=== PATIENT | female | born 1950 | race Caucasian/White ===

== ENCOUNTER → 2016-07-29 | Outpatient (CLI) | payer OTHER, MEDICARE | LOC: FIMAGING 11:28 | PROVIDERS: ATTEND Physician Assistant | DX: Z47.89 Encounter for other orthopedic aftercare (principal); M43.16 Spondylolisthesis, lumbar region; M47.896 Other spondylosis, lumbar region; Z98.1 Arthrodesis status ==

== ENCOUNTER → 2016-08-24 | Outpatient (CLI) | payer OTHER, MEDICARE | LOC: BHFA 09:15 | PROVIDERS: ATTEND Internal Medicine Cardiovascular Disease | DX: I27.2 Other secondary pulmonary hypertension (principal); G47.30 Sleep apnea, unspecified ==

== ENCOUNTER → 2017-02-22 | Outpatient (CLI) | payer OTHER, MEDICARE | LOC: FIMAGING 16:15 | PROVIDERS: ATTEND Internal Medicine | DX: Z12.31 Encounter for screening mammogram for malignant neoplasm of breast (principal) | CPT/HCPCS: G0202 ==

== ENCOUNTER 2017-05-14 08:47 | Day surgery (SDC) | payer OTHER, MEDICARE ==
--- NOTE | 2017-05-14 09:08 | PDGENHP ---
History & Physical Chief Complaint: CC: Reflux History of Present Illness: Hitory of reflux rule out Barretts Relevant Physical Exam: Lungs clear, Normal cardiac exam
[2017-05-14 09:28] VITALS: TEMP 97.9
[2017-05-14] MEDS ORDERED: LR 1,000 ML IV ONE (09:33)
--- NOTE | 2017-05-14 10:07 | PDANEPAE ---
ANE History of Present Illness EGD ANE Past Medical History - Cardiovascular History Hx Hypertension: No Hx Arrhythmias: No Hx Chest Pain: No Hx Coronary Artery / Peripheral Vascular Disease: No Hx CHF / Valvular Disease: No Hx Palpitations: No - Pulmonary History Hx Oxygen in Use at Home: Yes O2 in Use at Home (L/minute): 2L AT NOC Hx Sleep Apnea: Yes Sleep Apnea Screening Result - Last Documented: Positive Pulmonary History Comment: MAVIS POSITIVE USES O2 - Neurologic History Hx Cerebrovascular Accident: No Hx Seizures: No Hx Dementia: No Neurologic History Comment: HX OF LUMBAR SURGERY 2016 - Endocrine History Hx Diabetes: No - Renal History Hx Renal Disorders: No - Liver History Hx Hepatic Disorders: No - Neurological & Psychiatric Hx Hx Neurological and Psychiatric Disorders: No - Cancer History Hx Cancer: No - Congenital Disorder History Hx Congenital Disorders: No - GI History Hx Gastrointestinal Disorders: Yes Gastrointestinal History Comment: CHRONIC PANCREATITIS - Other Health History Other Health History: WEARS GLASSES - Chronic Pain History Chronic Pain: No - Surgical History Prior Surgeries: 06/22/15 L2-4, L4-5 TLIF WITH INSTRUMENTATION WITH SULEMA. CL,MENISCUS REPAIR,BREAST REDUCTION,ANKLE ORIF,LINDA THYROIDECTOMY ANE Review of Systems Review of systems is: negative Review of Systems: - Exercise capacity METS (RN): 4 METS ANE Patient History - Allergies Allergies/Adverse Reactions: gluten [Gluten] Allergy (Verified 05/13/17 16:12) GI UPSET hydromorphone HCl [From Dilaudid] Allergy (Verified 05/13/17 16:12) MIGRAINE MARKS morphine [Morphine] Allergy (Verified 05/13/17 16:12) NAUSEA NSAIDS (Non-Steroidal Anti-Inflamma Allergy (Verified 05/13/17 16:12) GASTRITIS - Home Medications Home medications: home medication list seen and reviewed Home Medications: ALPRAZolam [Xanax 1 MG (*)] 06/14/15 [Last Taken 05/13/17] Levothyroxine [Synthroid 125 mcg (*)] 06/14/15 [Last Taken 05/14/17] E2 05/13/17 [Last Taken 05/13/17] Epipen 0.3 MG 05/13/17 [Last Taken 05/02/12] Herbals/Supplements -Info Only 05/13/17 [Last Taken 05/13/17] Methocarbamol [Robaxin 750 mg (*)] 05/13/17 [Last Taken 05/13/17] Percocet 5-325 mg Tablet 05/13/17 [Last Taken 05/14/17] Progesterone, Micronized 05/13/17 [Last Taken 05/13/17] - NPO status NPO Since - Liquids (Date): 05/14/17 NPO Since - Liquids (Time): 06:00 NPO Since - Solids (Date): 05/13/17 NPO Since - Solids (Time): 19:30 - Anes Hx Anes Hx: no prior problems - Smoking Hx Smoking Status: Former smoker - Family Anes Hx Family Anes Hx: none Family Hx Anesthesia Complications: NONE ANE Labs/Vital Signs - Vital Signs Blood Pressure: 136/83 Heart Rate: 66 Respiratory Rate: 14 O2 Sat (%): 94 Height: 170.18 cm Weight: 87.6 kg ANE Physical Exam - Airway Neck exam: FROM Mallampati Score: Class 1 Mouth exam: normal dental/mouth exam - Pulmonary Pulmonary: no respiratory distress - Cardiovascular Cardiovascular: regular rate and rhythym - ASA Status ASA Status: III ANE Anesthesia Plan Total IV Anesthesia: Yes
--- NOTE | 2017-05-14 10:08 | POSTANESTH ---
Post Anesthetic Evaluation Cardiovascular Status: Normal, Stable, Similar to Pre-Op Cond Respiratory Status: Similar to Pre-op Cond. Level of Consciousness/Mental Status: Can Participate in Eval Pain Control: Adequate, Prn Tx Ordered Nausea/Vomiting Control: Adequate, Prn Tx Ordered Complications Possibly Related to Anesthesia: None Noted
[2017-05-14] MEDS ORDERED: PROPOFOL/EMULSION 500 MG/50 ML BOTTLE IV ONE (10:10)
--- NOTE | 2017-05-14 10:26 | GIREPORT ---
[facility] Surgical Services - Endoscopy Department Patient Name: Claudia Lara Procedure Date: 05/14/2017 9:57 AM Patient Type: Outpatient Attending MD/ ER Physician: Louis Blum MD Procedure: Upper GI endoscopy Indications: Heartburn, Esophageal reflux Providers: Louis Blum MD Medicines: Sedation Required Anesthesia Staff Assistance Complications: No immediate complications. Description of Procedure: After obtaining informed consent, the endoscope was passed under direct vision. Throughout the procedure, the patient's blood pressure, pulse, and oxygen saturations were monitored continuously. The Endoscope was intro duced through the mouth, and advanced to the second part of duodenum. The [facility] er GI endoscopy was accomplished without difficulty. The patient tolerated th e procedure well. Findings: The examined esophagus was normal. Biopsies were taken with a cold forc eps for histology. The entire examined stomach was normal. Biopsies were taken with a cold forceps for histology. The examined duodenum was normal. Biopsies for histology were taken wit h a cold forceps for evaluation of celiac disease. Estimated Blood Loss: Estimated blood loss: none. Post Op Diagnosis: - Normal esophagus. Biopsied. - Normal stomach. Biopsied. - Normal examined duodenum. Biopsied. Recommendation: - Follow an antireflux regimen. - Use Prevacid (lansoprazole) 30 mg PO daily. - Await pathology results. - Return to GI office in 2 months. - Thank you for allowing me to participate in the care of your patient. Attending Participation: I personally performed the entire procedure. Louis Blum MD Louis Blum MD 05/14/2017 10:26:15 AM This report has been signed electronicallyStchandra Blum MD Number of Addenda: 0 Note Initiated On: 05/14/2017 9:57 AM [email or web address]
[2017-05-14] MEDS ORDERED: MEPERIDINE 25 MG/ML SYR IVP PRN (10:35)
[2017-05-14] MEDS ORDERED: NALOXONE HCL 0.4 MG/ML INJ IVP PRN (10:35)
[2017-05-14] MEDS ORDERED: ACETAMINOPHEN 500 MG TAB PO PRN (10:35)
[2017-05-14] MEDS ORDERED: DEXAMETHASONE 4 MG/ML VIAL IVP PRN (10:35)
[2017-05-14] MEDS ORDERED: OXYCODONE/APAP 5/325 TAB PO PRN (10:35)
[2017-05-14] MEDS ORDERED: ONDANSETRON 4 MG/2 ML VIAL IVP PRN (10:35)
[2017-05-14] MEDS ORDERED: HYDROCODONE/APAP 5/325 TAB PO PRN (10:35)
[2017-05-14] MEDS ORDERED: fentaNYL 100 MCG/2 ML INJ ONE (10:50)
[2017-05-14] MEDS: fentaNYL 100 MCG/2 ML INJ IVP PRN ×2 (10:52→11:01)
[2017-05-14 11:20] VITALS: BP 165/80; PULSE 53; RESP 12; O2SAT 95
== END 2017-05-14 11:52 | disposition home or self-care (01) ==
LOC: FSGY 08:47
PROVIDERS: ATTEND Internal Medicine Gastroenterology
PROC: 0DB68ZX Excision of Stomach, Via Natural or Artificial Opening Endoscopic, Diagnostic (ICD-10-PCS; principal; 2017-05-14 10:15)
PROC: 0DB58ZX Excision of Esophagus, Via Natural or Artificial Opening Endoscopic, Diagnostic (ICD-10-PCS; principal; 2017-05-14 10:15)
PROC: 0DB98ZX Excision of Duodenum, Via Natural or Artificial Opening Endoscopic, Diagnostic (ICD-10-PCS; principal; 2017-05-14 10:15)
DX: R51 Headache (principal); K21.9 Gastro-esophageal reflux disease without esophagitis; Z87.891 Personal history of nicotine dependence
CPT/HCPCS: J2704; J3010

== ENCOUNTER → 2017-06-23 | Outpatient (CLI) | payer OTHER, MEDICARE | LOC: FIMAGING 18:48 | PROVIDERS: ATTEND Physician Assistant | DX: Z09 Encounter for follow-up examination after completed treatment for conditions other than malignant neoplasm (principal); Z98.1 Arthrodesis status ==

== ENCOUNTER 2018-06-17 12:51 | Inpatient (IN) | payer OTHER, MEDICARE ==
[2018-06-17] MEDS ORDERED: NS 1,000 ML IV ONE (13:18)
--- NOTE | 2018-06-17 13:18 | EDPHY ---
H & P Stated Complaint: cp l arm pain increasing stressors recently Time Seen by Provider: 06/17/18 13:18 HPI/ROS: HPI CHIEF COMPLAINT: Chest pain HISTORY OF PRESENT ILLNESS: This patient is a 68-year-old female she has a history of chronic pancreatitis most likely idiopathic, chronic back pain on Percocet, presents emergency room with chest pain she describes it as a dull sensation epigastric substernal, radiates to her left shoulder down her left arm. She noticed this around 6:00 a.m. This morning. It has been rather constant. No pleuritic pain. No shortness of breath. She does report to me she has been having increased stress recently. She has never had this before. She does suffer from chronic pancreatic pain but this is different. Past Medical History: History of chronic pancreatitis, chronic back pain Past Surgical History: Back Fusion, gallbladder removal Social History: Denies daily use of drugs alcohol tobacco. Works as a psychologist Family History: Noncontributory extensive cardiovascular history in her family including CA in her dad in his 40s. ROS REVIEW OF SYSTEMS: 10 Systems were reviewed and negative with the exception of the elements mentioned in the history of present illness. Exam Constitutional triage nursing summary reviewed, vital signs reviewed, awake/ alert. Eyes normal conjunctivae and sclera, EOMI, PERRLA. HENT normal inspection, atraumatic, moist mucus membranes, no epistaxis, neck supple/ no meningismus, no raccoon eyes. Respiratory clear to auscultation bilaterally, normal breath sounds, no respiratory distress, no wheezing. Cardiovascular rate normal, regular rhythm, no murmur, no edema, distal pulses normal. Gastrointestinal soft, non-tender, no rebound, no guarding, normal bowel sounds, no distension, no pulsatile mass. Genitourinary no CVA tenderness. Musculoskeletal no midline vertebral tenderness, full range of motion, no calf swelling, no tenderness of extremities, no meningismus, good pulses, neurovascularly intact. Skin pink, warm, & dry, no rash, skin atraumatic. Neurologic awake, alert and oriented x 3, AAOx3, moves all 4 extremities equally, motor intact, sensory intact, CN II-XII intact, normal cerebellar, normal vision, normal speech. Psychiatric normal mood/affect. Heme/Lymph/Immune no lymphadenopathy. Differential Diagnosis: Differential diagnosis includes but is not limited to: ACS, atypical chest pain, pneumothorax, pneumonia, pulmonary embolism, aortic dissection, congestive heart failure, tumor, musculoskeletal pain, esophageal pain, GERD, peptic ulcer disease, pancreatitis Medical Decision Making: Plan for this patient IV establishment, personnel monitor, EKG, troponin, electrolytes, rule out acute coronary syndrome, chest x- ray will give a dose of nitro, aspirin. Re-evaluation: . EKG interpretation by me on record in [facility] system. Impression time of EKG 1304, sinus rhythm rate of 97 ST depression seen in inferior leads to 3 AVF , as well as lateral leads V4 V5 V6. No ST elevation. 1425: Patient here with chest pain. Troponin negative. She does have an abnormal EKG. She has received full-dose aspirin here, as well as nitroglycerin Patient had a repeat EKG time 2:26 p.m., sinus rhythm rate of 86 again seen borderline T-wave abnormalities inferior leads. No ST elevation no significant ST depression. Patient re-evaluated 1434, chest pain improved after nitroglycerin. She is chest pain-free at this time. Plan for admission to Dr. Hicks. Patient updated agrees for admission. Troponin negative. Source: Patient - Personal History Current Tetanus Diphtheria and Acellular Pertussis (TDAP): Unsure Tetanus Vaccine Date: < 10 years - Medical/Surgical History Hx Asthma: No Hx Chronic Respiratory Disease: No Hx Diabetes: No Hx Cardiac Disease: No Hx Renal Disease: No Hx Cirrhosis: No Hx Alcoholism: No Hx HIV/AIDS: No Hx Splenectomy or Spleen Trauma: No Other PMH: T3-T4 nerve impingement, bilat knee meniscus, repair, pancreatitis, multiple pancreatic procedures, cholecystectomy, partial thyroidectomy HAD BILAT SNYOVIAL INJECTIONS, LEFT ANKLE REPAIR - Social History Smoking Status: Former smoker Constitutional: Initial Vital Signs Temperature (C) 37.2 C 06/17/18 12:52 Heart Rate 94 06/17/18 12:52 Respiratory Rate 18 06/17/18 12:52 Blood Pressure 171/98 H 06/17/18 12:52 O2 Sat (%) 92 06/17/18 12:52 O2 Delivery Mode Room Air O2 (L/minute) 2 Allergies/Adverse Reactions: gluten [Gluten] Allergy (Verified 06/17/18 12:52) GI UPSET hydromorphone HCl [From Dilaudid] Allergy (Verified 06/17/18 12:52) MIGRAINE MARKS morphine [Morphine] Allergy (Verified 06/17/18 12:52) NAUSEA NSAIDS (Non-Steroidal Anti-Inflamma Allergy (Verified 06/17/18 12:52) GASTRITIS Home Medications: Medication Instructions Recorded Levothyroxine [Synthroid 125 mcg 125 mcg PO DAILY06 06/14/15 (*)] Herbals/Supplements -Info Only 1 ea PO DAILY 05/13/17 Methocarbamol [Robaxin 750 mg (*)] 750 mg PO DAILY PRN 05/13/17 oxyCODONE HCL/ACETAMINOPHEN 1 each PO Q4-6PRN PRN 05/13/17 [Percocet 10-325 mg Tablet] ALPRAZolam [Xanax 0.5 MG (*)] 0.5 mg PO HS 06/17/18 Methadone HCl [Methadone 5 mg (*)] 5 mg PO DAILY 06/17/18 Lansoprazole [Prevacid] 30 mg PO BID 06/18/18 Medical Decision Making - Diagnostics Imaging Results: Imaging Impressions Myocardial Perfusion Scan Nuc Med 06/18/18 08:30 Impression: 1. Normal left ventricular ejection fraction of 73 %. 2. No focal wall motion abnormalities. 3. No definite ischemia or infarct. Chest/Thorax CTA 06/18/18 13:39 Impression: 1. No definite pulmonary thromboemboli. 2. Mild cardiomegaly. 3. No pneumonia, pleural effusion, or pneumothorax. - Data Points Laboratory Results: Laboratory Results 06/18/18 06:00 06/18/18 06:00 Medications Given: Alprazolam (Xanax) 0.5 mg PO HS [facility] Stop: 12/14/18 20:59 Last Admin: 06/17/18 22:12 Dose: 0.5 mg Amlodipine Besylate (Norvasc) 5 mg PO DAILY [facility] Stop: 12/15/18 16:59 Last Admin: 06/18/18 18:35 Dose: 5 mg Enoxaparin Sodium (Lovenox) 40 mg SC DAILY [facility] Stop: 12/15/18 08:59 Last Admin: 06/18/18 08:34 Dose: 40 mg Levothyroxine Sodium (Synthroid) 125 mcg PO DAILY06 [facility] Stop: 12/15/18 05:59 Last Admin: 06/18/18 05:30 Dose: 125 mcg Lisinopril (Zestril) 10 mg PO DAILY [facility] Stop: 12/15/18 15:44 Last Admin: 06/18/18 16:58 Dose: 10 mg Methadone HCl (Methadone Hcl) 5 mg PO DAILY [facility] Stop: 06/28/18 08:59 Last Admin: 06/18/18 08:35 Dose: 5 mg Methocarbamol (Robaxin) 750 mg PO DAILY PRN PRN Reason: Spasms Stop: 12/14/18 16:16 Last Admin: 06/18/18 19:06 Dose: 750 mg Oxycodone HCl (Oxycodone Ir) 5 mg PO Q4 PRN PRN Reason: Pain, Severe Able to Take PO Stop: 06/27/18 16:35 Last Admin: 06/18/18 18:29 Dose: 5 mg Oxycodone/Acetaminophen (Percocet 5/325) 1 tab PO Q4 PRN PRN Reason: Pain, Severe Able to Take PO Stop: 06/27/18 16:35 Last Admin: 06/18/18 18:29 Dose: 1 tab Pantoprazole Sodium (Protonix) 40 mg PO BID [facility] Stop: 12/15/18 10:59 Last Admin: 06/18/18 11:35 Dose: 40 mg Discontinued Medications Aspirin (Aspirin) 324 mg PO EDNOW ONE Stop: 06/17/18 13:27 Last Admin: 06/17/18 13:34 Dose: 324 mg Sodium Chloride (Ns) 1,000 mls @ 0 mls/hr IV EDNOW ONE; Wide Open PRN Reason: Protocol Stop: 06/17/18 13:19 Last Admin: 06/17/18 13:36 Dose: 1,000 mls Nitroglycerin (Nitrostat) 0.4 mg SL EDNOW ONE Stop: 06/17/18 13:27 Last Admin: 06/17/18 13:34 Dose: 0.4 mg Point of Care Test Results: Chemistry 06/17/18 13:38 POC Troponin I 0.00 ng/mL ng/mL (0.00-0.08) Departure - Departure Disposition: [facility] Acute Clinical Impression: Chest pain Qualifiers: Chest pain type: unspecified Qualified Code(s): R07.9 - Chest pain, unspecified Condition: Fair
[2018-06-17] MEDS ORDERED: ASPIRIN 81 MG CHEWABLE TAB PO ONE (13:26)
[2018-06-17] MEDS ORDERED: NITROGLYCERIN 0.4 MG BTL SL ONE (13:26)
[2018-06-17 13:45] LABS: PLATELET COUNT 226 10^3/uL (150-400)
[2018-06-17 14:03] LABS: INR 1.04 (0.83-1.16); PROTIME(PATIENT) 13.2 SEC (12.0-15.0)
[2018-06-17] MEDS ORDERED: ACETAMINOPHEN 325 MG TAB PO PRN (14:58)
[2018-06-17] MEDS ORDERED: PROMETHAZINE HCL 25 MG/ML INJ IVP PRN (14:58)
--- NOTE | 2018-06-17 15:17 | PDGENHP ---
History and Physical History and Physical: Chief complaint: Chest pain History of present illness: Pt is a L handed female w/ PMH chronic pancreatitis and central sleep apnea who developed moderate, aching midepigastric pain at 6am , which she thought was pancreatic. She took her regular pain medications Percocet and methadone this AM, but they did not help with the pain. Pain progressively worsened to a severe level and she developed L achy arm pain around 9-10am. Patient has not had L arm pain w/ epigastric pain in the past, she was was concerned about ACS because she has Hx central sleep apnea and has seen Dr. Samuel with [facility] for it in the past. Patient came to the ED , where she received a full dose aspirin and sublingual nitroglycerin. Pain subsequently resolved. Pt has been under increased stress because her son has had 2 SAH recently with stent placements and is getting his follow up appointments as [facility] tomorrow. Past medical history: Chronic back pain, chronic idiopathic pancreatitis, hyperlipidemia, hypothyroidism, central sleep apnea, obesity. Past surgical history: Cholecystectomy, left hemithyroidectomy, lumbar fusion surgery. Medications: Synthroid, Xanax, Percocet, Prevacid Allergies: Clindamycin, Dilaudid, morphine, anti-inflammatories. Social history: Nonsmoker, does not drink alcohol, uses edibles at night to sleep. 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 Family history: Father had an LA in his 70s. Mother received cardiac stents in her 80s. SAH x 2 in 46yo son. Review of systems: 10 point review of systems was conducted and is negative except per HPI Physical exam: Vitals: Reviewed General: The patient is an overweight female who is A&Ox3 and in no acute distress. HEENT: normocephalic, extraocular movements intact, conjunctivae clear, no lesions on face or pinnae. Nares and oral mucosa pink and moist. Neck: trachea midline, no visible masses, no external lesions. CV: +S1/S2, reg rate and rhythm. No murmurs/rubs/gallops. Resp: unlabored breathing, lungs clear to auscultation w/o rales, rhonchi, or wheezing. Abd: soft and nondistended, bowel sounds present. Nontender to palpation throughout. Musculoskeletal: Normal gait. Neuro: cranial nerves II - XII grossly intact. Intact gross motor and sensory function. Psych: appropriate mood/affect. Skin: No rash or ecchymoses or petechiae. : no suprapubic tenderness or CVA tenderness. Heme/lymph: No peripheral edema. Labs: Sodium 140 potassium 3.9 chloride 105 CO2 25 BUN 25 creatinine 0.8 glucose 100 to proBNP 156. INR 1.04. WBC 7.3 for hemoglobin 14.5 platelet 226. Other Data: Chest z-asf-EL-slightly rotated view, mildly prominent bronchi. EKG: Sinus rhythm, rate 86, left atrial enlargement, prolonged QT interval, QTC 474, T-wave inversion in lead 3 suggestive of ischemia. Old EKGs reviewed from 2016 (similar, but appears to have misplaced leads), 2015 (similar EKG, except lead III has sinusoidal T wave). Impression and plan: Acute chest pain Central sleep apnea QT prolongation Hyperlipidemia Obesity Hypothyroidism Chronic pain Chronic pancreatitis - protocol - cardiac monitoring, trend trops. Pt received ASA and NTG in ED. -Check AM labs. -EKG prn CP. -Check cardiac stress test. -Check echo. -Continue home meds. -Consult Cardiology (pt request). -VTE ppx - Lovenox. -Code status - full. Observation status.
[2018-06-17] MEDS ORDERED: METHOCARBAMOL 750 MG TAB PO PRN (16:17)
[2018-06-17] MEDS ORDERED: NON-FORMULARY NEW DRUG (Oxycodone Hcl/Acetaminophen [Percocet 10-325 Mg Tablet] 1 EACH) PO PRN (16:17)
[2018-06-17] MEDS ORDERED: NITROGLYCERIN 0.4 MG BTL SL PRN (16:18)
--- NOTE | 2018-06-17 18:39 | ECHO ---
[email or web address] [address] [address] Main: [phone] Echocardiography Examination Transthoracic Name: MANUEL AL MR#: [id number] Study Date: 06/17/2018 Study Time: 04:03 PM Date of : 1950 Age: 68 year(s) Height: 167.6 cm (66 in.) Weight: 86.18 kg (190 lb.) BSA: 1.96 m2 Gender: Female Examination: Echo Contrast: Image Quality: Adequate Rhythm: Heart Rate: BP: 177 mmHg/77 mmHg Indication: Chest pain/abnormal EKG Procedure Staff Referring Physician: Rn Icu: Elissa Howard [facility] Reading Physician: Kirby Manning MD Requesting Provider: Indication: Chest pain/abnormal EKG Measurements Chambers AV/MV Label Value Normal Value Label Value Normal Value LVDd, 2D 5.2 cm (3.9cm - 5.3cm) AV PGmax 8 mmHg LVDs, 2D 2.7 cm (2.1cm - 4cm) AV PGmean 4 mmHg IVSd, 2D 0.7 cm (0.6cm - 1.1cm) AV Vmax 1.39 m/s LVPWd, 2D 0.9 cm MV E Vmax 0.79 m/s LVEF, 2D 79 % (54% - 74%) MV A Vmax 0.76 m/s LA Volume, BP 67 ml (22ml - 52ml) MV E/A 1.04 LADs, 2D 3.7 cm (2.7cm - 3.8cm) MV E/E' lateral 11.1 LAESV index, BP 34.2 ml/m2 MV E/E' septal 11.4 (0.45 - 1.25) Additional Vessels MV E' septal 0.07 m/s Label Value Normal Value MV E' lateral 0.07 m/s AoRoot, MM 3.4 cm (2.2cm - 3.7cm) MV E/E' mean 11.29 MV E' mean 0.07 m/s Conclusions 1. The left ventricle is normal in size and function. The ejection fraction is 65-70%. No segmental wall motion abnormalities appreciated. 2. There is a mobile echodensity in the right ventricular outflow tract of unclear significance. Query prominent trabeculation. Consider ROSE to further evaluate. 3. The aortic valve is not well seen. There is no aortic stenosis or insufficiency. 4. The mitral valve is normal in structure. There is trivial to mild mitral regurgitation. Patient: MANUEL AL Study Date: 06/17/2018 Page 1 of 2 04:03 PM 5. The pulmonary artery pressure estimate is within normal limits. 6. No pericardial effusion. Findings Left Ventricle: Left ventricle is normal in size. Normal global systolic left ventricular function. EF range is estimated at 65 % - 70 %. Left ventricle wall thickness is normal. There are no regional wall motion abnormalities. Left ventricular diastolic function parameters are normal. Right Ventricle: Normal size right ventricle. Right ventricular systolic function is normal. There is an echodensity in the right ventricular outflow tract of unclear significance. Query prominent trabeculation. Consider ROSE to further evaluate. Left Atrium: The left atrium is normal in size. Right Atrium: The right atrium is normal in size. Mitral Valve: Normal . Trivial to mild mitral regurgitation. No mitral valve stenosis. Aortic Valve: Aortic leaflets exhibit normal cuspal separation. No aortic valve regurgitation. There is no aortic stenosis. Tricuspid Valve: Tricuspid valve leaflets are normal in appearance and function. Trivial tricuspid regurgitation. No tricuspid valve stenosis. Pulmonary artery pressure normal. Pulmonic Valve: Pulmonic valve is poorly visualized. Pulmonic leaflets exhibit normal cuspal separation. No pulmonic valve regurgitation is evident. There is no pulmonic valve stenosis. Aorta: The aorta is normal. The aortic root size in M-mode measures 3.4 cm. Aorta Measurements AoRoot, MM is 3.4 cm. Pulmonary Artery: The pulmonary artery morphology appears normal. IVC: The inferior vena cava is normal in size and course. Pericardium: Trivial anterior pericardial effusion. No pleural effusion present. Exam Details Procedure Ordered: Echo Procedure Status: Routine study Image Quality: Adequate Facility Location: Cardiac Echo 1 (No Signature Object) Patient: MANUEL AL Study Date: 06/17/2018 Page 2 of 2 04:03 PM [id number]
[2018-06-17] MEDS: oxyCODONE IR 5 MG TAB PO PRN (19:25)
[2018-06-17] MEDS: OXYCODONE/APAP 5/325 TAB PO PRN (19:25)
[2018-06-17] MEDS: ALPRAZolam 1 MG TAB PO SCH (22:12)
[2018-06-18] MEDS: oxyCODONE IR 5 MG TAB PO PRN ×5 (02:19→22:31)
[2018-06-18] MEDS: OXYCODONE/APAP 5/325 TAB PO PRN ×5 (02:19→22:30)
[2018-06-18] MEDS: LEVOTHYROXINE 125 MCG TAB PO SCH (05:30)
[2018-06-18 06:17] LABS: PLATELET COUNT 187 10^3/uL (150-400)
[2018-06-18] MEDS: ENOXAPARIN 40 MG/0.4 ML SYR SC SCH (08:34)
[2018-06-18] MEDS: METHADONE HCL 5 MG TAB PO SCH (08:35)
[2018-06-18] MEDS ORDERED: Herbals/Supplements -Info Only PO SCH (09:00)
[2018-06-18] MEDS ORDERED: REGADENOSON 0.4 MG/5 ML SYR IVP ONE (09:18)
--- NOTE | 2018-06-18 10:34 | PDCARST ---
CAR Stress Test Results Type of Stress Test: Nuclear TM stress test Indication: cp Description of Procedure: After informed consent was obtained, pt was exercised according to [facility] Protocol. Monitoring was performed with standard stress car tester electrode placement. Vital signs were monitored according to protocol throughout the procedure. STRESS EKG AND HEMODYNAMIC DATA. Exercise time: 5 min. This is equivalent to: 6.2 METS. Resting heart rate: 75 bpm. Resting blood pressure: 142/90 mmHg. Resting O2 saturation: 97 %. Peak heart rate: 157 bpm. This is 103 % of age predicted maximum heart rate response. Peak blood pressure: 210/90 mmHg. Exercise O2: 86 %. Arrhythmias : 1 PVC in recovery. Reason for termination: The test was stopped due to dizziness/dyspnea. Symptoms: The patient experienced no typical symptoms of angina during stress or recovery. STRESS TEST ANALYSIS. Baseline ECG: SR, diffuse ST-T wave abn, Twi in III. Stress ECG: no worsening of baseline abnormality on exertion. No exercise induced ischemic ECG changes. Rhythm: 1 PVC in recovery. Blood pressure: Hypertension at rest and hypertensive blood pressure response to exercise. Exercise tolerance: The patient has low average exercise tolerance adjusted for age and gender. Symptoms: No exercise induced symptoms. Impression: Stress ECG indeterminate for ischemia. Hypoxia on exertion normalized in recovery. Hypertension at rest and with exertion. Conclusion: Await nuclear images. Address exertional hypoxia and likely start on antihypertensive agent.
--- NOTE | 2018-06-18 11:31 | ASMTCMCOM ---
CM Note CM Note Notes: Pts case discussed in tx rounds. Pt is a 68 y/o female admitted for chest pain. Pt will most likely d/c independent when medically stable. No therapies ordered at this time. CM available for changes. Plan: Independent Date Signed: 06/18/2018 11:30 AM Electronically Signed By:DIANE Monterroso
[2018-06-18] MEDS: PANTOPRAZOLE SODIUM 40 MG TAB PO SCH ×2 (11:35→22:29)
--- NOTE | 2018-06-18 14:26 | HOSPPROG ---
Hospitalist Progress Note Assessment/Plan: Impression and plan: Acute chest pain Central sleep apnea QT prolongation Hyperlipidemia Obesity Hypothyroidism Chronic pain Chronic pancreatitis - CP protocol - Trop negative overnight, EKG with no acute ischemic changes, ST depressions in inf leads - Stress test performed this AM with no acute ischemic changes, although pt did have elevated BP and hypoxia with exertion - TTE performed this AM showing normal EF, no RWMA, did show echodensity in RV outflow tract, possible trabeculation - Cardiology consulted, recommending CTA to r/o PE, will consider ROSE, f/u formal recs - Pt with elevated BP during admission, SBP 170-80s today, will start on Lisinopril 10 mg qd this afternoon -VTE ppx - Lovenox. -Code status - full. - Dispo: Pending clinical course Subjective: Pt reports no chest pain this AM Objective: Vital Signs Temp Pulse Resp BP Pulse Ox 37.0 C 82 16 185/93 H 91 L 06/18/18 11:17 06/18/18 11:17 06/18/18 11:17 06/18/18 11:17 06/18/18 11:17 Laboratory Results 06/18/18 06:00 06/18/18 06:00 06/17/18 06/18/18 06/19/18 05:59 05:59 05:59 Intake Total 2200 Output Total 2100 Balance 100 PT 13.2 SEC (12.0-15.0) 06/17/18 13:10 INR 1.04 (0.83-1.16) 06/17/18 13:10 - Physical Exam Constitutional: no apparent distress Eyes: PERRL Ears, Nose, Mouth, Throat: moist mucous membranes Cardiovascular: regular rate and rhythym Respiratory: no respiratory distress, clear to auscultation Gastrointestinal: soft, non-tender abdomen Skin: warm Musculoskeletal: full muscle strength Neurologic: AAOx3 Psychiatric: interacting appropriately ICD10 Worksheet Patient Problems: Problems Problem Status Onset Chest pain Acute Arthrodesis status Acute Lumbar radicular pain Acute Lumbar stenosis Acute
[2018-06-18] MEDS ORDERED: IOPAMIDOL (ISOVUE 370) 100 ML BTL IV ONE (15:28)
[2018-06-18] MEDS ORDERED: NS 500 ML IV ONE (16:56)
[2018-06-18] MEDS: LISINOPRIL 10 MG TAB PO SCH (16:58)
--- NOTE | 2018-06-18 18:28 | CPEKG ---
Test Reason : OPEN Blood Pressure : / mmHG Vent. Rate : 097 BPM Atrial Rate : 097 BPM P-R Int : 208 ms QRS Dur : 098 ms QT Int : 372 ms P-R-T Axes : 056 007 -11 degrees QTc Int : 473 ms Sinus rhythm Borderline prolonged MN interval LAE, consider biatrial enlargement Borderline T abnormalities, inferior leads Confirmed by Tiffany Pickard ([id number]) on 06/18/2018 6:27:52 PM Referred By: Rosmery Hicks Confirmed By:Tiffany Pickard
[2018-06-18] MEDS: amLODIPine BESYLATE 5 MG TAB PO SCH (18:35)
--- NOTE | 2018-06-18 20:02 | GCON ---
[f rep st] CONSULTATION CARDIOLOGY CONSULTATION. DATE OF CONSULTATION: 06/18/2018 INDICATION FOR CONSULTATION: Chest pain. CONSULTING PHYSICIAN: Dr. Rosmery Hicks. HISTORY OF PRESENT ILLNESS: Claudia is a pleasant 68-year-old female with a past medical history of ch ronic back pain, chronic idiopathic pancreatitis, hyperlipidemia, hypothyroidism, and history of cent ral sleep apnea, who was in her usual state of health until yesterday, when she developed acute onset of epigastric discomfort which she initially thought was her pancreatitis. However, her symptoms pr ogressively worsened coupled with radiation to the left arm and shoulder, prompted her to seek medica l attention at [facility] for further evaluation. She was concerned that this may be due to stress secondary to recent illness of her son, who suffered 2 recent subarachnoid hemorrhages , who has been currently evaluated at [facility]. Ms Lara states that she has noticed shortness of breath and dyspnea on exertion over the last year e very time she walks up an incline. She walks her dog 3 miles a day and she has noted that every time she goes up the same incline, she is dyspneic and short of breath more than she would expect. She d enies any complaints of exertional chest pain or chest pressure. She has no known history of coronary artery disease. She states she did a calcium score within the l ast 3 years with a score of 0. Her initial ECG demonstrated normal sinus rhythm with first-degree AV block and poor R-wave progressi on. Serial troponins were negative x3. She did undergo an exercise nuclear stress test earlier today. She was able to exercise for 5 minute s on a standard Alonzo protocol. Starting blood pressure of 142/90. With a resting oxygen saturation 97%. Oxygen saturation declined to 86% with exertion. She had a peak blood pressure of 210/90. Te st was discontinued secondary to dizziness and dyspnea. She did achieve a peak heart rate of 157 ladan ts per minute representing 103% of her maximum predicted heart rate. Nuclear images demonstrated normal perfusion and function. Claudia also underwent complete 2D echocardiogram earlier today demonstrating normal left ventricular s ize and function. Atrial dimensions were normal. No significant valvular disease. She did have an evidence of a mobile echodensity in the right ventricular outflow tract of unclear significance. Claudia has no known history of hypercoagulable state. She has no previous history of DVT or pulmonary emboli. Currently, at the time of my exam, she is resting comfortably without complaint. PAST MEDICAL HISTORY: Chronic pancreatitis, central sleep apnea, chronic back pain, hyperlipidemia, hypothyroidism. MEDICATIONS ON ADMISSION: Include Prevacid 30 mg p.o. b.i.d., methadone 5 mg daily, Xanax 0.5 mg 2 p .o. q.h.s., Percocet 10/325, 1 tab p.o. q.4-6 hours p.r.n., Robaxin 750 mg daily p.r.n., Synthroid 1 25 mcg daily. ALLERGIES TO MEDICATION: Include gluten, hydromorphone, morphine, and NSAIDs. PHYSICAL EXAMINATION: VITAL SIGNS: Blood pressure 172/80, heart rate 79, in sinus rhythm, oxygen sa turation 95% on room air, respiratory rate of 16, temperature 36.7. GENERAL: She is awake, alert, o riented, appropriate. No apparent distress. NECK: There is no evidence of JVP or carotid bruits. LUNGS: Clear to auscultation bilaterally. CARDIAC: S1, S2. Regular rate and rhythm. No murmurs, r ubs, or gallops. ABDOMEN: Obese, soft, nontender, nondistended. There is no pulsatile mass or abdo silvino bruit. EXTREMITIES: There is no evidence of cyanosis, clubbing or edema. DATA: White blood cell count 5.23, hemoglobin 13.3, hematocrit 39.4, platelet count of 187. Sodium 140, potassium 4.2, chloride 107, bicarb 27, BUN 17, creatinine 0.7, magnesium 2.2. AST 39, ALT 34, alkaline phosphatase 61, serial troponins were less than 0.012 x3. N-terminal proBNP 156. Total cholesterol 224, LDL of 158, HDL 46, triglycerides 99, lipase 140. IMPRESSION: 1. Atypical chest and epigastric discomfort. 2. Hypertension. Hyperlipidemia. 3. Echodensity noted in right ventricular outflow tract. 4. Hypoxia with exertion with decrease in O2 sat to 84%. 5. Known history of central sleep apnea. PLAN: 1. Recommend CTA of the chest to evaluate for possible pulmonary emboli in the setting of mobile ec hodensity in the right ventricular outflow tract. 2. Recommend ROSE tomorrow to further assess right ventricular outflow tract. 3. N.p.o. after midnight. 4. We will start antihypertensive medication with low-dose amlodipine. 5. We will continue to follow along with her care. /[id number]/MODL
[2018-06-18] MEDS: ALPRAZolam 1 MG TAB PO SCH (22:31)
[2018-06-19] MEDS: OXYCODONE/APAP 5/325 TAB PO PRN ×3 (04:18→16:57)
[2018-06-19] MEDS: oxyCODONE IR 5 MG TAB PO PRN ×3 (04:19→16:53)
[2018-06-19] MEDS: PANTOPRAZOLE SODIUM 40 MG TAB PO SCH (06:42)
[2018-06-19] MEDS: LEVOTHYROXINE 125 MCG TAB PO SCH (06:42)
[2018-06-19] MEDS: amLODIPine BESYLATE 5 MG TAB PO SCH (08:18)
[2018-06-19] MEDS: ENOXAPARIN 40 MG/0.4 ML SYR SC SCH (08:20)
[2018-06-19] MEDS: LISINOPRIL 10 MG TAB PO SCH (08:22)
[2018-06-19] MEDS: METHADONE HCL 5 MG TAB PO SCH (08:30)
[2018-06-19] MEDS ORDERED: MAGNESIUM CITRATE 300 ML BOTTLE PO ONE (08:46)
[2018-06-19] MEDS ORDERED: ATORVASTATIN CALCIUM 40 MG TAB PO SCH (09:00)
[2018-06-19] MEDS ORDERED: FAMOTIDINE 20 MG/NACL 50 ML IV ONE (12:19)
--- NOTE | 2018-06-19 12:26 | PDMN ---
Medical Necessity Medical necessity: Change to IP, as of 06/18/18, per MD & MCG M-89; los >2 mn for ongoing management of atypical chest & epigastric pain w/hypoxia on exertion (decrease in O2 sat to 84%) & echodensity noted in R ventricular outflow tract; requiring further monitoring, Cardiology consult w/CTA to r/o PE & ROSE; hx chronic pancreatitis
[2018-06-19] MEDS ORDERED: PROPOFOL 200 MG/20 ML VIAL ONE (14:20)
[2018-06-19] MEDS ORDERED: LIDOCAINE 2% 2 ML INJ ONE (14:20)
--- NOTE | 2018-06-19 14:27 | PDANEPAE ---
ANE Past Medical History - Cardiovascular History Hx Hypertension: No Hx Arrhythmias: No Hx Chest Pain: No Hx Coronary Artery / Peripheral Vascular Disease: No Hx CHF / Valvular Disease: No Hx Palpitations: No - Pulmonary History Hx Oxygen in Use at Home: Yes O2 in Use at Home (L/minute): 2 Hx Sleep Apnea: Yes Pulmonary History Comment: MAVIS POSITIVE USES O2 - Neurologic History Hx Cerebrovascular Accident: No Hx Seizures: No Hx Dementia: No Neurologic History Comment: HX OF LUMBAR SURGERY 2016 - Endocrine History Hx Diabetes: No - Renal History Hx Renal Disorders: No - Liver History Hx Hepatic Disorders: No - Neurological & Psychiatric Hx Hx Neurological and Psychiatric Disorders: No - Cancer History Hx Cancer: No - Congenital Disorder History Hx Congenital Disorders: No - GI History Hx Gastrointestinal Disorders: Yes Gastrointestinal History Comment: CHRONIC PANCREATITIS - Other Health History Other Health History: WEARS GLASSES - Chronic Pain History Chronic Pain: Yes (Lower back and pancreas) - Surgical History Prior Surgeries: 06/22/15 L2-4, L4-5 TLIF WITH INSTRUMENTATION WITH SULEMA. CL,MENISCUS REPAIR,BREAST REDUCTION,ANKLE ORIF,LINDA THYROIDECTOMY ANE Review of Systems Review of Systems: ANE Patient History - Allergies Allergies/Adverse Reactions: gluten [Gluten] Allergy (Verified 06/17/18 12:52) GI UPSET hydromorphone HCl [From Dilaudid] Allergy (Verified 06/17/18 12:52) MIGRAINE MARKS morphine [Morphine] Allergy (Verified 06/17/18 12:52) NAUSEA NSAIDS (Non-Steroidal Anti-Inflamma Allergy (Verified 06/17/18 12:52) GASTRITIS - Home Medications Home Medications: Levothyroxine [Synthroid 125 mcg (*)] 125 mcg PO DAILY06 06/14/15 [Last Taken ] Herbals/Supplements -Info Only 1 ea PO DAILY 05/13/17 [Last Taken 05/13/17] Methocarbamol [Robaxin 750 mg (*)] 750 mg PO DAILY PRN 05/13/17 [Last Taken 02/18] oxyCODONE HCL/ACETAMINOPHEN [Percocet 10-325 mg Tablet] 1 each PO Q4-6PRN PRN [Last Taken 05/14/17] ALPRAZolam [Xanax 0.5 MG (*)] 0.5 mg PO HS 06/17/18 [Last Taken 06/16/18] Methadone HCl [Methadone 5 mg (*)] 5 mg PO DAILY 06/17/18 [Last Taken 06/17/18] Lansoprazole [Prevacid] 30 mg PO BID 06/18/18 [Last Taken Unknown] - Smoking Hx Smoking Status: Former smoker - Family Anes Hx Family Hx Anesthesia Complications: NONE ANE Labs/Vital Signs - Labs Result Diagrams: 06/18/18 06:00 06/18/18 06:00 - Vital Signs Blood Pressure: 139/81 Heart Rate: 64 Respiratory Rate: 16 O2 Sat (%): 94 Height: 167.64 cm Weight: 86.183 kg ANE Physical Exam - Airway Neck exam: FROM Mallampati Score: Class 1 Mouth exam: normal dental/mouth exam - Pulmonary Pulmonary: no respiratory distress, no rales or rhonchi, clear to auscultation - Cardiovascular Cardiovascular: regular rate and rhythym, no murmur, rub, or gallop - ASA Status ASA Status: III ANE Anesthesia Plan Anesthesia Plan: GA with mask Total IV Anesthesia: Yes
--- NOTE | 2018-06-19 14:28 | PDHPUP ---
History & Physical Update H&P update statement: This history and physical update is based on an assessment of the patient which was completed after admission or registration (within 24 hours), but prior to the surgery/procedure. H&P update: H&P reviewed & patient examined, no change in patient's condition since H&P completed
--- NOTE | 2018-06-19 15:00 | POSTANESTH ---
Post Anesthetic Evaluation Cardiovascular Status: Normal, Stable Respiratory Status: Normal, Stable Level of Consciousness/Mental Status: Can Participate in Eval Pain Control: Adequate, Prn Tx Ordered Nausea/Vomiting Control: Adequate, Prn Tx Ordered Complications Possibly Related to Anesthesia: None Noted
--- NOTE | 2018-06-19 16:57 | PDCARPN ---
Cardiology Progress Note Assessment/Plan: Assessment: -SOB -LEPE -HTN Plan: -Discharge home on amlodipine 5 mg dailyi -Recommend out pt pulm eval with Dr. Vega Noriega -Follow up with me in 2 weeks 06/19/18 16:57 Subjective: Claudia is feeling well. No cardiac complaints. BP has improved with Amlodipine 5 mg daily. ROSE today demonstrate normal RV function and valves. Finding on surface echo was due to enlarged posterior tricuspid leaflet. Reviewed/Discussed With: hospitalist Objective: Vital Signs (8 Hrs) Temp Pulse Resp BP Pulse Ox 06/19/18 14:59 64 16 139/81 H 94 06/19/18 12:00 36.9 C 64 16 139/81 H 94 Intake/Output (24 Hrs) 06/18/18 06/19/18 06/20/18 05:59 05:59 05:59 Intake Total 1100 Output Total 2500 Balance -1400 Intake: Oral (ml) 1100 Output: Urine (ml) 2500 Toilet 2500 Other: Weight 86.183 kg Number of Voids Toilet 1 Result Diagrams: 06/18/18 06:00 06/18/18 06:00 - Physical Exam Musculoskeletal: no muscular tenderness, no joint effusions Neurologic: AAOx3 ICD10 Worksheet Patient Problems: Problems Problem Status Onset Chest pain Acute Arthrodesis status Acute Lumbar radicular pain Acute Lumbar stenosis Acute
--- NOTE | 2018-06-19 17:01 | PDDCSUM ---
Discharge Summary Discharge Summary: Date of Admission: 06/18/2018 Date of Discharge: 06/20/2018 Consults: Cardiology Procedures: CTA Chest, TTE, ROSE Followup: PCP, Cardiology, Pulmonology Hospital Course Problem List: Acute chest pain Central sleep apnea QT prolongation Hyperlipidemia Obesity Hypothyroidism Chronic pain Chronic pancreatitis - CP protocol - Trop negative overnight, EKG with no acute ischemic changes, ST depressions in inf leads - Stress test performed on 06/18 with no acute ischemic changes, although pt did have elevated BP and hypoxia with exertion - TTE performed on 06/18 showing normal EF, no RWMA, did show echodensity in RV outflow tract, possible trabeculations - ROSE performed which showed normal RV function and valves, findings aboev 2/2 enlarged posterior tricuspid leaflet - Pt with elevated BP during admission, SBP 170-80s today, started on Amlodipine 5 mg qd upon discharge - Patient to followup with Dr. Trejo of Cardiology as well as Dr. Vega Noriega of Pulmonology Time spent on discharge was >35 minutes with >50% of time spent on patient education and counseling.
[2018-06-19 17:02] VITALS: BP 141/76
--- NOTE | 2018-06-19 18:00 | ECHO ---
[email or web address] [address] [address] Main: [phone] Echocardiography Examination Transesophageal Name: MANUEL AL MR#: [id number] Study Date: 06/19/2018 Study Time: 02:19 PM Date of : 1950 Age: 68 year(s) Height: 167.6 cm (66 in.) Weight: 86.18 kg (190 lb.) BSA: 1.96 m2 Gender: Female Examination: ROSE Contrast: Image Quality: Rhythm: Heart Rate: BP: / Indication: Eval RVOT Procedure Staff Referring Physician: Copy Cutter: Vitaly Euceda RDCS Reading Physician: Star Trejo MD Requesting Provider: Indication: Eval RVOT Conclusions Left Ventricle: Left ventricle is normal in size. The EF is visually estimated to be 65 %. IVS: The septum is intact. Right Ventricle: The echodensity that was visualized in the in the right venticular outflow tract on transthorasic images appears to be a prominent tricuspid valve. The RV has prominent trabeculations.. Findings Left Ventricle: Left ventricle is normal in size. Normal global systolic left ventricular function. The EF is visually estimated to be 65 %. Left ventricle wall thickness is normal. There are no regional wall motion abnormalities. Left ventricular diastolic function parameters are normal. IVS: The septum is intact. Right Ventricle: The echodensity that was visualized in the in the right venticular outflow tract on transthorasic images appears to be a prominent tricuspid valve. The RV has prominent trabeculations.. Normal size right ventricle. Right ventricular systolic function is normal. Patient: MANUEL AL Study Date: 06/19/2018 Page 1 of 2 02:19 PM Left Atrium: The left atrium is normal in size. No mass is present in the left atrium. Left Atrium Appendage: Normal left atrial appendage. No mass is present. IAS: Normal appearing atrial septum. No evidence of a patent foramen ovale. Right Atrium: The right atrium is normal in size. Mitral Valve: Normal . Trivial to mild mitral regurgitation. No mitral valve stenosis. Aortic Valve: Aortic leaflets exhibit normal cuspal separation. No aortic valve regurgitation. There is no aortic stenosis. Tricuspid Valve: Normal. No tricuspid regurgitation. No tricuspid valve stenosis. Pulmonary artery pressure normal. Pulmonic Valve: Pulmonic leaflets exhibit normal cuspal separation. No pulmonic valve regurgitation is evident. There is no pulmonic valve stenosis. Aorta: The aorta is normal. Pulmonary Artery: The pulmonary artery morphology appears normal. IVC: The inferior vena cava is normal in size and course. Pericardium: No pericardial effusion. Exam Details Procedure Ordered: ROSE (No Signature Object) Patient: MANUEL AL Study Date: 06/19/2018 Page 2 of 2 02:19 PM [id number]
--- NOTE | 2018-06-19 22:00 | CPR ---
[f rep st] NONINVASIVE CARDIAC PROCEDURE REPORT DATE OF PROCEDURE: 06/19/2018 INDICATION FOR PROCEDURE: Abnormal echodensity noted in right ventricular outflow tract on surface e chocardiogram in the setting of complaints of shortness of breath and dyspnea. PROCEDURE PERFORMED: Transesophageal echocardiogram. DESCRIPTION OF PROCEDURE: After informed consent, consent was obtained for transesophageal echocardi ogram and anesthesia, patient was brought to the CVC. A bite block was in place. After time-out, pa elicia was sedated with propofol. After appropriate level of sedation was achieved, patient had ROSE p robe passed without incident. ROSE probe was used to take images of all cardiac structures. Please s ee formal echo report for full details. Patient tolerated the procedure well. There were no postoperative complications. CONCLUSION: 1. Normal tricuspid valve. 2. Normal pulmonic valve. 3. Echodensity noted on surface echocardiogram was due to enlarged posterior tricuspid valve leaflet . No other abnormalities noted. /[id number]/MODL
--- NOTE | 2018-06-20 07:47 | CPEKG ---
Test Reason : OPEN Blood Pressure : / mmHG Vent. Rate : 086 BPM Atrial Rate : 086 BPM P-R Int : 232 ms QRS Dur : 099 ms QT Int : 396 ms P-R-T Axes : 056 041 -09 degrees QTc Int : 474 ms Sinus rhythm Prolonged PA interval Probable left atrial enlargement Borderline T abnormalities, inferior leads Confirmed by Brady Rose ([id number]) on 06/20/2018 7:46:01 AM Referred By: Brady Rose Confirmed By:Brady Rose
--- NOTE | 2018-06-20 08:46 | ASDISCHSUM ---
Discharge Information Plan Status:Home with No Needs Medically Cleared to Leave:06/19/2018 Discharge Date:06/19/2018 06:31 PM CM D/C Disposition:Home, Routine, Self-Care ADT D/C Disposition:Home, Routine, Self-Care Projected Discharge Date:06/19/2018 06:31 PM Transportation at D/C: Discharge Delay Reason: Follow-Up Date:06/19/2018 06:31 PM Discharge Slot: Final Diagnosis: Placement Information Patient Contact Information Contact Name:CHAITANYA Relationship:Mark Address: Work Phone: City: [facility] Phone: State/[place] Code: Email: Financial Information Financial Class:Medicare Primary Plan Desc:MEDICARE INPATIENT Primary Plan Number:[id number] Secondary Plan Desc:[employer]/MDR SUPPLEMENT Secondary Plan Number:[id number] Assessment Information LACE LACE Length of stay for Answers: 1 day current admission Acuity / Level of Answers: No Care: Did the patient have an inpatient admission? Comorbidities - select Answers: Opioid dependence all that apply / Chronic pain Other Notes: Chronic pancreatitis; HLD; Hypo thy roid # of Emergency department Answers: 1-2 visits in the last 6 months Score: 7 Date Signed: 06/20/2018 08:44 AM Electronically Signed By:Joaquina Gomez RN [facility] CM Progress Note CM Note CM Note Notes: Pts case discussed in tx rounds. Pt is a 68 y/o female admitted for chest pain. Pt will most likely d/c independent when medically stable. No therapies ordered at this time. CM available for changes. Plan: Independent Date Signed: 06/18/2018 11:30 AM Electronically Signed By:Katie Janice, MET[employer] WIRE TECHNICIAN Intervention Information Intervention Type:*MARTINEZ-Signed Date of Service:06/18/2018 01:57 PM Patient Type:Observation Staff Member:Analisa Larsen Hours: Discipline: Severity: Comment:
== END 2018-06-19 18:31 | disposition home or self-care (01) | DRG 313 ==
LOC: F2W 16:33 → OBSVTOIN 06-18 14:47
PROVIDERS: ADMIT Internal Medicine; ATTEND Internal Medicine
PROC: B244ZZ4 Ultrasonography of Right Heart, Transesophageal (ICD-10-PCS; principal; 2018-06-19)
DX: R07.89 Other chest pain (principal); K86.1 Other chronic pancreatitis; E86.9 Volume depletion, unspecified; G47.31 Primary central sleep apnea; I45.81 Long QT syndrome; E78.5 Hyperlipidemia, unspecified; E66.9 Obesity, unspecified; E03.9 Hypothyroidism, unspecified; G89.29 Other chronic pain
CPT/HCPCS: 84484-ER; A9500; G0378; J1650; J2704; J2785; Q9967

== ENCOUNTER → 2018-09-01 | Outpatient (CLI) | payer OTHER, MEDICARE | LOC: FIMAGING 15:10 ==